=== PATIENT | male | born 1995 | race Two or more races ===

== ENCOUNTER 2018-05-25 23:39 | Emergency (ER) | END 2018-05-26 04:20 | disposition home or self-care (01) ==

== ENCOUNTER 2019-01-23 15:31 | Emergency (ER) | payer OTHER ==
[~2019-01-23] VITALS: Wt 100.0 kg
[~2019-01-23 15:31] MED LIST: BEN50 PO; CALAMINE TOP; CLOT30CR24 TOP; MECL12.5 PO
[2019-01-23 15:37] VITALS: BP 101/90; PULSE 100; RESP 20
[2019-01-23] MEDS ORDERED: DIPHTH/TET/ACEL PERTUSS (ADULT) 0.5 ML VIAL IM* ONE (16:30)
[2019-01-23] MEDS ORDERED: AMOX1TAB10 PO (17:01)
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
== END 2019-01-23 17:20 | disposition home or self-care (01) ==
LOC: FTE 15:31
DX: S51.851A Open bite of right forearm, initial encounter (principal); Y04.1XXA Assault by human bite, initial encounter; Z23 Encounter for immunization
CPT/HCPCS: 36415; 80076; 85025; 86703; 86706; 86803; 87340; 90471; 90715